=== PATIENT | male | born 1990 | race Caucasian/White ===

== ENCOUNTER 2022-10-10 16:01 | Outpatient (RCR) | payer OTHER, SELFPAY | END 2022-10-10 19:00 | disposition home or self-care (01) | LOC: PT 16:01 | PROVIDERS: PCP Family Medicine | DX: Z00.00 Encounter for general adult medical examination without abnormal findings (principal) ==

== ENCOUNTER → 2024-07-07 | Outpatient (CLI) | payer OTHER, SELFPAY ==
--- NOTE | 2024-07-07 06:50 | MRI_ITS ---
PROCEDURE: SPINE LUMBAR (ROUTINE) 07/07/2024 REASON FOR EXAM: PAIN TECHNIQUE: Multiplanar and multisequence images were obtained without IV contrast administration. COMPARISON: Lumbar spine radiographs on 05/27/2024 FINDINGS: Vertebral body heights and alignment are maintained. Marrow signal is unremarkable. Cord signal is unremarkable. Conus terminates at the upper L1 level. 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 L1-2: No significant disc bulge. No significant facet arthrosis. No neural foraminal narrowing. L2-3: No spinal canal narrowing. No significant disc bulge. Minimal facet arthrosis. No neural foraminal narrowing. No significant spinal canal narrowing. L3-4: No significant disc bulge. Minimal facet arthrosis. No neural foraminal narrowing. Congenitally short pedicles contribute to minimal spinal canal narrowing, measuring 9 mm in AP diameter. L4-5: Minimal disc bulge. Mild facet arthrosis. There is [id number] neural foraminal narrowing bilaterally. Mild spinal canal narrowing with AP diameter of 7 mm. L5-S1: Mild disc desiccation and bulging, with a tiny annular fissure posteriorly. Mild facet arthropathy. Moderate neural foraminal narrowing bilaterally. Mild spinal canal narrowing measuring 7 mm in AP diameter. MRI/Spine Lumbar (Routine) IMPRESSION: [id number] degenerative changes of the lumbar spine, worst at L4-5 and L5 -S1 as detailed above. Reading Location: [id number]
== END | disposition home or self-care (01) ==
PROVIDERS: PCP Family Medicine; Referring Provider Student in an Organized Health Care Education/Training Program; Visit Provider Student in an Organized Health Care Education/Training Program
DX: M54.16 Radiculopathy, lumbar region (principal)
CPT/HCPCS: 72148